=== PATIENT | male | born 1985 | race Caucasian/White ===

== ENCOUNTER 2017-12-29 13:33 | Emergency (ER) | payer BC ==
[2017-12-29 13:46] VITALS: BP 123/75
--- NOTE | 2017-12-29 14:22 | UC ---
Knee Pain HPI - HPI Summary HPI Summary: 32 y/p male presents to the urgent care c/o Rt knee pain s/p shoveling this morning around 1000AM. Pt reports he slipped and fell and heard a pop sound. He was able to bear weight, but walks w/ mild limping. Pt applied ice and took ibuprofen PO to alleviate symptoms. Pain now is dull 1/10 at rest and w/ movement or walking sharp 4/10. Pt states Hx of left patella fracture on the same knee about 13 years ago. Pt denies numbness or tingling sensation over the left lower leg, calf pain, SOB, chest pain, abdominal pain, N/V/D. - History of Current Complaint Chief Complaint: UCLowerExtremity Stated Complaint: KNEE INJURY Time Seen by Provider: 12/29/17 14:19 Hx Obtained From: Patient Onset/Duration: Sudden Onset, Lasting Hours - 4hrs, Still Present Severity Initially: Mild Severity Currently: Mild Pain Intensity: 4 Pain Scale Used: 0-10 Numeric Character: Sharp Aggravating Factor(s): Movement, Other - walking Alleviating Factor(s): Rest, Position, Cold, OTC Meds - advil PO 4hrs ago Associated Signs And Symptoms: Positive: Negative. Negative: Swelling, Redness , Bruising, Fever, Weakness, Numbness, Tingling Able to Bear Weight: Yes - Risk Factors Septic Arthritis Risk Factor: Negative Gout Risk Factor: Negative - Allergies/Home Medications Allergies/Adverse Reactions: Allergies Allergy/AdvReac Type Severity Reaction Status Date / Time No Known Allergies Allergy Verified 12/29/17 13:46 Home Medications: Home Medications Gabapentin 300 mg PO BEDTIME 12/29/17 [History Confirmed 12/29/17] Selegiline 6 MG PATCH (NF) [Emsam PATCH (NF)] 6 mg PATCH OFF 12/29/17 [History] PMH/Surg Hx/FS Hx/Imm Hx Previously Healthy: Yes Other Neurological History: Restless leg syndrome Other Psychological History: insomnia - Surgical History Surgical History: Yes Surgery Procedure, Year, and Place: cysts removed and wisdom teeth - Family History Known Family History: Positive: Hypertension Family History: dyslipidemia - Social History Occupation: Employed Full-time Lives: With Family Alcohol Use: Occasionally Substance Use Type: None Smoking Status (MU): Never Smoked Tobacco Review of Systems All Other Systems Reviewed And Are Negative: Yes Constitutional: Positive: Negative Skin: Positive: Negative Eyes: Positive: Negative ENT: Positive: Negative Respiratory: Positive: Negative Cardiovascular: Positive: Negative Gastrointestinal: Positive: Negative Genitourinary: Positive: Negative Motor: Positive: Negative Neurovascular: Positive: Negative Musculoskeletal: Positive: Decreased ROM - Rt knee, Other: - Rt knee pain s/p injury Neurological: Positive: Negative Psychological: Positive: Negative Is Patient Immunocompromised?: No Physical Exam - Summary Physical Exam Summary: Vital Signs Reviewed: Yes General: well developed, well nourished male sitting in the examining table w/o any apparent distress Eyes: Positive: Conjunctiva Clear - PERRLA, EOMI, fundi grossly normal ENT: Positive: Normal ENT inspection, Hearing grossly normal, Pharynx normal, TMs normal Neck: Positive: Supple, Nontender, No Lymphadenopathy Respiratory: Positive: Chest nontender, Lungs clear, Normal breath sounds, No respiratory distress Cardiovascular: Positive: RRR, No Murmur, Pulses Normal, Brisk Capillary Refill Abdomen Description: Positive: Nontender, No Organomegaly, Soft. Negative: CVA Tenderness (R), CVA Tenderness (L) Bowel Sounds: Positive: Present Musculoskeletal: Positive: Strength Intact, No Edema, RT Knee: Pt is able to bear weight and ambulate with limping. No surface trauma, soft tissue swelling, or obvious effusion. No overlying erythema or warmth. The RT knee is without obvious asymmetry or deformity when compared with the L knee. Decreased ROM of Rt knee due to pain. Point tenderness to palpation of the patella, no effusion or ballottement. No tenderness over the infrapatellar tendon. No tenderness over the medial joint line, No tenderness over the medial or lateral tibial plateaus. No tenderness over the proximal fibular head, No tenderness, fullness or mass of the popliteal fossa. No quadriceps tenderness. No laxity of the ACL. PCL, MCL, or LCL. no collateral ligament laxity to valgus or varus stress. Negative Nadia/Drawer sign. Negative Devonte. Distal motor and neurovascular status intact. Neurological Exam: Normal Psychological Exam: Normal Skin Exam: Normal Triage Information Reviewed: Yes Vital Signs: Initial Vital Signs Temp 97 F 12/29/17 13:43 Pulse 100 12/29/17 13:43 Resp 20 12/29/17 13:43 BP 123/75 12/29/17 13:43 Pulse Ox 100 12/29/17 13:43 Knee Pain Course/Dx - Course Course Of Treatment: 32 y/p male presents to the urgent care c/o Rt knee pain s/ p shoveling this morning around 1000AM. Pt reports he slipped and fell and heard a pop sound. He was able to bear weight, but walks w/ mild limping. Pt applied ice and took ibuprofen PO to alleviate symptoms. Pain now is dull 1/10 at rest and w/ movement or walking sharp 4/10. Pt states Hx of left patella fracture on the same knee about 13 years ago. Pt denies numbness or tingling sensation over the left lower leg, calf pain, SOB, chest pain, abdominal pain, N /V/D. Hx obtained. LF knee X-ray ordered. Impression:No acute osseous injury. Possible chronic 1cm loose body at the level of the intercondylar notch. Probably from previous patellear injury 13 years ago. Pt's knee immobilized w/ knee immobilizer for 1 week. Pt. Rx Ibuprofen PO for pain. Advised RICE. Avoid strenuous exercise or standing for long period of time. ADvised if not improvement of symptoms to f/u with Orthopedic Dr Yoon for further evaluation and treatment. PT understood and agreed with D/C instructions. - Differential Dx/Diagnosis Differential Diagnosis/HQI/PQRI: Contusion, Dislocation, Fracture (Closed), Patellofemoral Syndrome, Sprain, Strain, Tendonitis Provider Diagnoses: 1- Rt knee pain s/p injury. 2- RT knee sprain Discharge - Sign-Out/Discharge Documenting (check all that apply): Patient Departure - d/c home All imaging exams completed and their final reports reviewed: Yes - Discharge Plan Condition: Stable Disposition: HOME Prescriptions: Ibuprofen TAB* [Motrin TAB* 800 MG] 800 mg PO Q6H PRN #30 tab PRN Reason: knee pain Patient Education Materials: Knee Sprain (ED) Referrals: Watson Tomas MD [Primary Care Provider] - 3 Days Dat Yoon MD [Medical Doctor] - 1 Week Additional Instructions: 1-Please take medications after meals as directed to alleviate pain and swelling. 2-Please apply ice, keep your knee immobilized with the splint. Avoid standing for long periods of time, or strenuous exercise or heavy lifting. 3- Please f/u with Orthopedic Dr Yoon or your PCP in 1 week is not improvement of symptoms for further evaluation and treatment. - Billing Disposition and Condition Condition: STABLE Disposition: Home
== END 2017-12-29 15:43 | disposition home or self-care (01) ==
LOC: UCEAST 13:33
DX: S86.911A Strain of unspecified muscle(s) and tendon(s) at lower leg level, right leg, initial encounter (principal); W01.0XXA Fall on same level from slipping, tripping and stumbling without subsequent striking against object, initial encounter; Y93.H1 Activity, digging, shoveling and raking; Y92.9 Unspecified place or not applicable
CPT/HCPCS: 99213; G0463

== ENCOUNTER 2019-05-01 18:33 | Emergency (ER) | payer BC ==
--- OUTSIDE RECORDS SUMMARY | 2019-05-01 18:40 | XMS REPORT | Continuity of Care Document ---
:1985 External Reference #:[id number] Author Name Watson Tomas MD Address [address] [place] [address] Care Team Providers Name Role Phone Watson Tomas MD - Family Care Team Information Entry Level [phone] [facility] - Care Team Information Entry Level Physical Therapist Problems Description No Information Available Social History Type Date Description Comments Sex Unknown Tobacco Use Start: Unknown End: Unknown Patient is a former smoker Smoking Status Reviewed: 06/07/17 Patient is a former smoker Allergies, Adverse Reactions, Alerts Description No Known Drug Allergies Medications Active Medications SIG Qnty Indications Ordering Provider Date Gabapentin take 1 to 2 180caps Watson TGrace 300mg capsules by mouth MD Genoveva Capsules every day as needed Emsam one patch daily. 90units Watson TGrace 6mg/24HR MD Genoveva Patches 24HR Immunizations Description No Information Available Vital Signs Date Vital Result Comment 03/06/2019 5:54pm BP Systolic 118 mmHg BP Diastolic 84 mmHg Heart Rate 92 /min Body Temperature 97.7 F Respiratory Rate 16 /min Height 63 inches 5'3" Weight 189.00 lb BMI (Body Mass Index) 33.5 kg/m2 08/30/2018 4:14pm BP Systolic 112 mmHg BP Diastolic 76 mmHg Heart Rate 112 /min Body Temperature 98.2 F Respiratory Rate 16 /min Height 63 inches 5'3" Weight 185.00 lb BMI (Body Mass Index) 32.8 kg/m2 Results Description No Information Available Procedures Description No Information Available Medical Devices Description No Information Available Encounters Description No Information Available Assessments Date Code Description Provider 03/06/2019 F33.0 Major depressive disorder, recurrent, mild Watson Tomas MD 03/06/2019 L70.0 Acne vulgaris Watson Tomas MD Plan of Treatment Future Appointment(s):09/04/2019 6:00 pm - Watson Tomas MD at [id number]/06/2019 - Watson Tomas MDF33.0 Major depressive disorder, recurrent, mildFollow up:6 moL70.0 Acne vulgarisAllComments:Medication Management Patient Understands medications he's taking? Yes No Are there Barriersto Adherence? Yes No Has the patient been asked about herbal supplements and therapies, and OTC meds? Yes No Functional Status Description No Information Available Mental Status Description No Information Available Referrals Description No Information Available
[2019-05-01 19:09] VITALS: BP 149/85
[2019-05-01] MEDS ORDERED: Tetan/Diph/Pertus SYR(Tdap)* 0.5 ML SYR(BOOSTRIX) use SYR contains LATEX IM ONE (19:25)
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
--- NOTE | 2019-05-02 10:13 | UC ---
- Progress Note Progress Note: wet read correct Course/Dx - Diagnoses Provider Diagnoses: Dog bite of left hand without complication Discharge ED - Sign-Out/Discharge Documenting (check all that apply): Post-Discharge Follow Up All imaging exams completed and their final reports reviewed: Yes - Discharge Plan Condition: Stable Disposition: HOME Prescriptions: Amoxicillin/Clavulanate TAB* [Augmentin TAB 875*] 875 mg PO BID #20 tab Patient Education Materials: Animal Bite (ED) Referrals: Watson Tomas MD [Primary Care Provider] - If Needed Additional Instructions: X-RAY NEGATIVE FOR ANY ACUTE BONY INJURY ON MY INITIAL INTERPRETATION. WE WILL CALL YOU TOMORROW IF THE RADIOLOGY READ DIFFERS. REST, ICE, ELEVATE. TAKE AUGMENTIN TWICE DAILY FOR 10 DAYS TO COVER FOR INFECTIOUS PROCESS. OTC MEDICATIONS NEEDED FOR DISCOMFORT. TETANUS BOOSTER TODAY. COVER WOUNDS WITH ANTIBIOTIC OINTMENT AND A NONSTICK BANDAGE WHILE HEALING. SEEK FOLLOW-UP IF YOU DEVELOP SPREADING REDNESS OF THE SKIN, PURULENT DRAINAGE, FEVER, INCREASED PAIN OR ANY OTHER CONCERNING SYMPTOMS. TETANUS IMMUNIZATION GIVEN (TDAP): You have been given an immunization against tetanus. Please record this in your records. In general, a booster is needed only once every 10 years. The tetanus shot protects against tetanus or "lockjaw," which is a complication of certain wound infections (the tetanus shot cannot protect against the actual infection). The immunization site may become warm and red due to local reaction. If this occurs, apply warm compresses and take aspirin or ibuprofen to reduce inflammation and discomfort. Return for evaluation if the reaction becomes severe. - Billing Disposition and Condition Condition: STABLE Disposition: Home
== END 2019-05-01 20:24 | disposition home or self-care (01) ==
LOC: UCEAST 18:33
DX: S61.452A Open bite of left hand, initial encounter (principal); Z23 Encounter for immunization; W54.0XXA Bitten by dog, initial encounter; Y92.9 Unspecified place or not applicable
CPT/HCPCS: 90471; 90715; 99213; G0463